=== PATIENT | female | born 1970 | race Caucasian/White ===

== ENCOUNTER 2021-01-09 16:15 | Outpatient (CLI) | payer SELFPAY ==
--- NOTE | 2021-01-09 16:47 | MR_ITS ---
WS: [id number] MRI LUMBAR SPINE NONCONTRAST TECHNIQUE: Sagittal T1, T2 and STIR imaging. Axial T1 and T2 imaging. CLINICAL INFORMATION: OTHER SPONDYLOSIS, LUMBAR REGION COMPARISON: None. FINDINGS: Normal lumbar line. No acute compression. No high-grade central canal stenosis. Slight anterolisthesi s L4 on L5. L1-L2: Normal. L2-L3: Mild annular bulging. Slight effacement of the ventral thecal sac. Mild facet arthropathy. L3-L4: Mild annular bulging with slight effacement of ventral thecal sac. Mild right foraminal narrow ing. Moderate facet arthropathy. L4-L5: Slight anterolisthesis L4 on L5. Mild annular bulging with mild central canal stenosis. Imping ement traversing right L5 nerve root. Small right foraminal protrusion with mild right foraminal narr owing. Mild to moderate facet arthropathy. L5-S1: No significant disc bulging. Mild to moderate facet arthropathy. Spinal canal and foramen are patent. Visualized pelvic bony structures: Normal. Paravertebral soft tissues: Normal. MR/MR lumbar spine wo con* [id number] IMPRESSION: 1. Normal lumbar alignment. Slight anterolisthesis L4 on L5. No high-grade carlyn tral canal stenosis. 2. Mild central canal stenosis L4-5 with impingement right subarticular recess and traversing right L5 nerve root. 3. Small right L4-5 foraminal protrusion with mild right foraminal narrowing. 4. Mild right L3-4 foraminal narrowing. 5. Mild to moderate facet arthropathy L3-L4 and L4-L5.
== END 2021-01-09 16:16 | disposition home or self-care (01) ==
LOC: RADSHAW 16:16
PROVIDERS: PCP Physician Assistant Medical; Visit Provider Physician Assistant
DX: M25.78 Osteophyte, vertebrae (principal); M47.896 Other spondylosis, lumbar region; M47.816 Spondylosis without myelopathy or radiculopathy, lumbar region; M51.26 Other intervertebral disc displacement, lumbar region; M48.061 Spinal stenosis, lumbar region without neurogenic claudication
CPT/HCPCS: 72148

== ENCOUNTER → 2021-04-19 08:54 | Outpatient (BNVA) | payer OTHER, SELFPAY | PROVIDERS: PCP Physician Assistant Medical; Visit Provider Nurse Practitioner Family | DX: Z20.822 Contact with and (suspected) exposure to COVID-19 (principal) | CPT/HCPCS: 87635 ==

== ENCOUNTER → 2024-08-24 10:20 | Outpatient (BNVA) | payer MEDICARE, MEDICAID, SELFPAY | PROVIDERS: PCP Nurse Practitioner; Visit Provider Nurse Practitioner | DX: E11.9 Type 2 diabetes mellitus without complications (principal) | CPT/HCPCS: 80053; 80061; 83036; 85025 ==